=== PATIENT | female | born 1985 | race Caucasian/White ===

== ENCOUNTER 2017-02-20 13:48 | Emergency (ER) | payer SELFPAY ==
[~2017-02-20] VITALS: Ht 162.6 cm; Wt 72.5 kg
[~2017-02-20 13:48] MED LIST: Z.0.NO CURRENT MEDS
[2017-02-20 13:50] VITALS: BP 144/76; PULSE 86; RESP 15; TEMP 98.2; O2SAT 98
--- NOTE | 2017-02-20 13:57 | PD ---
Physical Exam Time Seen by Provider: 13:54 Narrative 31yo F c/o MERLOS x 6days. Hx of similar MERLOS's. +N w/o vomiting. Reports numbness to R side of neck. Denies focal deficits or weakness. Has been taking Maxalt w / no relief of MERLOS. Hx seizures and does not take medications. Patient seen in triage. VS reviewed. Awaiting bed placement. Data Data Last Documented VS Vital Signs Date Time Temp Pulse Resp B/P Pulse Ox O2 Delivery O2 Flow Rate FiO2 02/20/17 13:50 98.2 86 15 144/76 98 MDM Supervised Visit with ALDO: Mel Gomez Feb 20, 2017 13:57
[2017-02-20] MEDS ORDERED: SODIUM CHLOR 0.9% 1000 ML INJ 1,000 ML IV ONE (15:45)
[2017-02-20] MEDS ORDERED: METOCLOPRAMIDE HCL 10 MG/2 ML VIAL IVP ONE (15:45)
[2017-02-20] MEDS ORDERED: diphenhydrAMINE HCL 50 MG/ML VIAL IVP ONE (15:45)
[2017-02-20] MEDS ORDERED: KETOROLAC TROMETHAMINE 30 MG/ML (IVP) VIAL IVP ONE (15:45)
--- NOTE | 2017-02-20 15:52 | PD ---
HPI Chief Complaint: Headache Time Seen by Provider: 15:40 Travel History International Travel<30 days: No Contact w/Intl Traveler<30days: No Traveled to known affect area: No History of Present Illness HPI This is a 31-year-old female who has a history of migraine headaches who presents to the emergency department with 6 days of a headache on the right side of her head, constant, feeling like a numbness, associated with photophobia , nausea and pain in her right eye with some tearing. She says this feels just like headaches she's had in the past. She had an MRI a couple of years ago which was normal. She recently [place] here from [place] of town and has been taking Maxalt which was prescribed by her doctors at home but that's not been helping. PFSH Past Medical History Diminished Hearing: No GERD: Yes Headaches: Yes Reproductive: Yes (OV[employer] CYSTS) Migraines: Yes Tetanus Vaccination: > 5 Years Influenza Vaccination: No ?: Not LMP: 02/18/17 : 0 Para: 0 Miscarriage: 0 : 0 Past Surgical History Surgical History: No Previous Surgery Social History Alcohol Use: Yes (SOCIALLY ) Tobacco Use: No Substance Use: No Allergies-Medications (Allergen,Severity, Reaction): Coded Allergies: No Known Allergies (Verified , 02/20/17) Reported Meds & Prescriptions Reported Meds & Active Scripts Active Review of Systems Except as stated in HPI: all other systems reviewed are Neg Physical Exam Narrative GENERAL:Well appearing, no acute distress SKIN: Focused skin assessment warm and dry. HEAD: Atraumatic. Normocephalic. EYES: Pupils equal and round. No injection or drainage. ENT: Moist mucous membranes NECK: Trachea midline. CARDIOVASCULAR: Regular rate and rhythm. No murmur appreciated. RESPIRATORY: Clear to auscultation. Breath sounds equal bilaterally. GASTROINTESTINAL: Abdomen soft, non-tender, nondistended. MUSCULOSKELETAL: No obvious deformities. NEUROLOGICAL: Awake and alert. No obvious cranial nerve deficits. No dysarthria or aphasia. No upper or lower extremity drift. No upper extremity ataxia. Visual morales intact. PSYCHIATRIC: Appropriate mood and affect; insight and judgment normal. Data Data Last Documented VS Vital Signs Date Time Temp Pulse Resp B/P Pulse Ox O2 Delivery O2 Flow Rate FiO2 02/20/17 15:45 18 99 Room Air 02/20/17 13:50 98.2 86 144/76 Orders Iv Access Insert/Monitor (02/20/17 15:45) Ketorolac Inj (Toradol Inj) (02/20/17 15:45) Diphenhydramine Inj (Benadryl Inj) (02/20/17 15:45) Metoclopramide Inj (Reglan Inj) (02/20/17 15:45) Sodium Chlor 0.9% 1000 Ml Inj (Ns 1000 M (02/20/17 15:45) MDM Medical Decision Making Medical Screen Exam Complete: Yes Emergency Medical Condition: Yes Interpretation(s) Afebrile, no tachycardia, hypertensive Differential Diagnosis Migraine headache, subarachnoid hemorrhage, tension headache, cluster headache Narrative Course This is a 31-year-old female who has a history of migraine headaches who presents to the emergency department with a headache typical of her normal headaches that has not been going away for 6 days. She has a normal neurologic exam. I don't think any imaging is warranted as her headache was gradual in onset and is typical of her normal headaches. An IV was established and patient was given Reglan, Benadryl, Toradol and IV fluids. She feels much better. She'll be discharged on naproxen. Diagnosis Primary Impression: Migraine headache Qualified Code: G43.909 - Migraine without status migrainosus, not intractable , unspecified migraine type Patient Instructions: General Instructions Additional Instructions: If you develop severe worsening headache, persistent vomiting, numbness, weakness, difficulty walking or difficulty talking return to the emergency department immediately. Sometimes in the emergency department we did not identify the cause of headaches. If you continued to have headaches it is very important that you followup with your primary care physician as you may need further testing with an MRI. Med/Other Pt SpecificInfo: Prescription(s) given Scripts Naproxen 500 Mg Uil036 Mg PO BID PRN (PAIN SCALE 4 TO 10) #20 TAB Prov:Lori Desir MD 02/20/17 Disposition: 01 DISCHARGE HOME Condition: Stable Lori Desir MD Feb 20, 2017 15:52
[2017-02-20] MEDS ORDERED: NAPR500T PO (16:55)
== END 2017-02-20 17:30 | disposition home or self-care (01) ==
LOC: NEPD 13:48
DX: G43.909 Migraine, unspecified, not intractable, without status migrainosus (principal)
CPT/HCPCS: 96361; 96374; 96375; 99284; J1200; J1885; J2765; J7030

== ENCOUNTER 2018-02-04 17:56 | Emergency (ER) | payer SELFPAY ==
[~2018-02-04] VITALS: Ht 162.6 cm; Wt 72.8 kg
[~2018-02-04 17:56] MED LIST changes: +NAPR500T2 PO; -Z.0.NO CURRENT MEDS
[2018-02-04 18:02] VITALS: BP 136/85; PULSE 82; RESP 16; TEMP 98.2; O2SAT 98
[2018-02-04 18:18] LABS: BILIRUBIN, URINE NEG (NEG); BLOOD, URINE LARGE (NEG); GLUCOSE,URINE NEG (NEG); KETONE, URINE NEG (NEG); NITRITE,URINE NEG (NEG); URINE COLOR YELLOW (YELLW/STRAW); URINE LEUKOCYTE ESTERASE NEG (NEG)
[2018-02-04 18:22] LABS: MUCUS URINE MANY /lpf (OCC); SQUAMOUS EPITHELIAL CELL URINE 0-5 /hpf (0-5)
--- NOTE | 2018-02-04 18:38 | PD ---
HPI Chief Complaint: GI Complaint Time Seen by Provider: 18:07 Travel History International Travel<30 days: No Contact w/Intl Traveler<30days: No Traveled to known affect area: No History of Present Illness HPI The patient is a 32-year-old female who presents to the emergency department for nausea, vomiting, diarrhea, and abdominal pain. The patient's symptoms started on Friday with abdominal distention and nausea. This was followed by 2 episodes of vomiting. The patient did develop diarrhea which she describes as loose, watery, brown, without any visible blood. She notes approximately 10 episodes of diarrhea today. She denies any fever, chills, or sweats. She does work in a service engine repairer office, denies any sick contacts at home. The patient denies any previous abdominal surgeries. The patient states that she had thin white vaginal discharge last week, then started her menstrual cycle and there is been no further discharge. She denies any pelvic pain, dysuria, frequency, or urgency. Symptoms are moderate. The patient is currently on oral contraceptives, denies . She denies multiple sexual partners or history of chronic STDs. PFSH Past Medical History Diminished Hearing: No GERD: Yes Headaches: Yes Reproductive: Yes ([employer] CYSTS) Migraines: Yes Influenza Vaccination: No ?: Not LMP: THIS WEEK : 0 Para: 0 Miscarriage: 0 : 0 Social History Alcohol Use: Yes (SOCIALLY ) Tobacco Use: No Substance Use: No Allergies-Medications (Allergen,Severity, Reaction): Coded Allergies: No Known Allergies (Verified Adverse Reaction, Unknown, 02/04/18) Reported Meds & Prescriptions Reported Meds & Active Scripts Active Zofran Odt (Ondansetron Odt) 4 Mg Tab 4 Mg SL Q6HR PRN Bentyl (Dicyclomine HCl) 10 Mg Cap 10 Mg PO QID Naproxen 500 Mg Tab 500 Mg PO BID PRN Review of Systems Except as stated in HPI: all other systems reviewed are Neg General / Constitutional: No: Fever, Chills Cardiovascular: No: Chest Pain or Discomfort Respiratory: No: Shortness of Breath Gastrointestinal: Positive: Nausea, Vomiting, Diarrhea, Abdominal Pain Genitourinary: No: Dysuria Musculoskeletal: No: Myalgias Skin: No Rash Physical Exam Narrative GENERAL: Awake, alert, very pleasant 32-year-old female who appears her stated age and is in no acute respiratory distress. SKIN: Focused skin assessment warm/dry. HEAD: Atraumatic. Normocephalic. EYES: Pupils equal and round. No scleral icterus. No injection or drainage. ENT: No nasal bleeding or discharge. Dry mucous membranes. NECK: Trachea midline. No JVD. CARDIOVASCULAR: Regular rate and rhythm. No murmur appreciated. RESPIRATORY: No accessory muscle use. Clear to auscultation. Breath sounds equal bilaterally. GASTROINTESTINAL: Abdomen soft, non-tender, nondistended. No guarding or rigidity. No tympany noted. Back: No CVA tenderness. MUSCULOSKELETAL: No obvious deformities. No clubbing. No cyanosis. No edema. NEUROLOGICAL: Awake and alert. No obvious cranial nerve deficits. Motor grossly within normal limits. Normal speech. PSYCHIATRIC: Appropriate mood and affect; insight and judgment normal. Data Data Last Documented VS Vital Signs Date Time Temp Pulse Resp B/P (MAP) Pulse Ox O2 Delivery O2 Flow Rate FiO2 02/04/18 19:28 100 Room Air 02/04/18 19:05 74 16 02/04/18 18:02 98.2 Orders Orders Urinalysis - C+S If Indicated (02/04/18 18:07) Ed Urine Pregnancytest Poc (02/04/18 18:07) Complete Blood Count With Diff (02/04/18 18:40) Comprehensive Metabolic Panel (02/04/18 18:40) Lipase (02/04/18 18:40) Lactic Acid (02/04/18 18:40) Iv Access Insert/Monitor (02/04/18 18:40) Ecg Monitoring (02/04/18 18:40) Oximetry (02/04/18 18:40) Morphine Inj (Morphine Inj) (02/04/18 18:45) Sodium Chlor 0.9% 1000 Ml Inj (Ns 1000 M (02/04/18 18:40) Sodium Chloride 0.9% Flush (Ns Flush) (02/04/18 18:45) Dicyclomine (Bentyl) (02/04/18 18:45) Al-Mag Hy-Si 40-40-4 Mg/Ml Liq (Mag-Al P (02/04/18 18:45) Lidocaine 2% Viscous (Xylocaine 2% Visco (02/04/18 18:45) Ondansetron Odt (Zofran Odt) (02/04/18 18:45) Labs Laboratory Tests Test 02/04/18 18:05 02/04/18 19:00 Urine Color YELLOW Urine Turbidity CLEAR Urine pH 6.0 Urine Specific [place] GREATER/EQUAL 1.030 Urine Protein TRACE mg/dL Urine Glucose (UA) NEG mg/dL Urine Ketones NEG mg/dL Urine Occult Blood LARGE Urine Nitrite NEG Urine Bilirubin NEG Urine Urobilinogen 0.2 MG/DL Urine Leukocyte Esterase NEG Urine RBC 4-9 /hpf Urine WBC 3-5 /hpf Urine Squamous Epithelial Cells 0-5 /hpf Urine Mucus MANY /lpf White Blood Count 6.5 TH/MM3 Red Blood Count 4.49 MIL/MM3 Hemoglobin 11.9 GM/DL Hematocrit 36.0 % Mean Corpuscular Volume 80.2 FL Mean Corpuscular Hemoglobin 26.5 PG Mean Corpuscular Hemoglobin Concent 33.1 % Red Cell Distribution Width 12.4 % Platelet Count 307 TH/MM3 Mean Platelet Volume 7.9 FL Neutrophils (%) (Auto) 51.4 % Lymphocytes (%) (Auto) 35.1 % Monocytes (%) (Auto) 12.1 % Eosinophils (%) (Auto) 1.1 % Basophils (%) (Auto) 0.3 % Neutrophils # (Auto) 3.3 TH/MM3 Lymphocytes # (Auto) 2.3 TH/MM3 Monocytes # (Auto) 0.8 TH/MM3 Eosinophils # (Auto) 0.1 TH/MM3 Basophils # (Auto) 0.0 TH/MM3 CBC Comment DIFF FINAL Differential Comment Blood Urea Nitrogen 5 MG/DL Creatinine 0.54 MG/DL Random Glucose 80 MG/DL Total Protein 7.6 GM/DL Albumin 3.5 GM/DL Calcium Level 8.5 MG/DL Alkaline Phosphatase 76 U/L Aspartate Amino Transf (AST/SGOT) 13 U/L Alanine Aminotransferase (ALT/SGPT) 23 U/L Total Bilirubin 0.2 MG/DL Sodium Level 140 MEQ/L Potassium Level 3.5 MEQ/L Chloride Level 107 MEQ/L Carbon Dioxide Level 28.3 MEQ/L Anion Gap 5 MEQ/L Estimat Glomerular Filtration Rate 133 ML/MIN Lactic Acid Level 1.1 mmol/L Lipase 261 U/L MDM Medical Decision Making Medical Screen Exam Complete: Yes Emergency Medical Condition: Yes Medical Record Reviewed: Yes Interpretation(s) Laboratory Tests Test 02/04/18 18:05 02/04/18 19:00 Urine Color YELLOW Urine Turbidity CLEAR Urine pH 6.0 Urine Specific [place] GREATER/EQUAL 1.030 Urine Protein TRACE mg/dL Urine Glucose (UA) NEG mg/dL Urine Ketones NEG mg/dL Urine Occult Blood LARGE Urine Nitrite NEG Urine Bilirubin NEG Urine Urobilinogen 0.2 MG/DL Urine Leukocyte Esterase NEG Urine RBC 4-9 /hpf Urine WBC 3-5 /hpf Urine Squamous Epithelial Cells 0-5 /hpf Urine Mucus MANY /lpf White Blood Count 6.5 TH/MM3 Red Blood Count 4.49 MIL/MM3 Hemoglobin 11.9 GM/DL Hematocrit 36.0 % Mean Corpuscular Volume 80.2 FL Mean Corpuscular Hemoglobin 26.5 PG Mean Corpuscular Hemoglobin Concent 33.1 % Red Cell Distribution Width 12.4 % Platelet Count 307 TH/MM3 Mean Platelet Volume 7.9 FL Neutrophils (%) (Auto) 51.4 % Lymphocytes (%) (Auto) 35.1 % Monocytes (%) (Auto) 12.1 % Eosinophils (%) (Auto) 1.1 % Basophils (%) (Auto) 0.3 % Neutrophils # (Auto) 3.3 TH/MM3 Lymphocytes # (Auto) 2.3 TH/MM3 Monocytes # (Auto) 0.8 TH/MM3 Eosinophils # (Auto) 0.1 TH/MM3 Basophils # (Auto) 0.0 TH/MM3 CBC Comment DIFF FINAL Differential Comment Blood Urea Nitrogen 5 MG/DL Creatinine 0.54 MG/DL Random Glucose 80 MG/DL Total Protein 7.6 GM/DL Albumin 3.5 GM/DL Calcium Level 8.5 MG/DL Alkaline Phosphatase 76 U/L Aspartate Amino Transf (AST/SGOT) 13 U/L Alanine Aminotransferase (ALT/SGPT) 23 U/L Total Bilirubin 0.2 MG/DL Sodium Level 140 MEQ/L Potassium Level 3.5 MEQ/L Chloride Level 107 MEQ/L Carbon Dioxide Level 28.3 MEQ/L Anion Gap 5 MEQ/L Estimat Glomerular Filtration Rate 133 ML/MIN Lactic Acid Level 1.1 mmol/L Lipase 261 U/L Differential Diagnosis Differential diagnosis includes gastroenteritis, enteritis, colitis, viral syndrome, influenza, food poisoning, infectious diarrhea, dehydration, acute kidney injury, pancreatitis. Narrative Course IV was established, labs are drawn and sent, and the patient was placed on cardiac telemetry monitoring and continuous pulse oximetry monitoring. The patient was administered Zofran ODT, Bentyl, morphine, and IV fluids. Bedside UA test was obtained, was negative. UA was sent to lab. The patient' s white count is normal, however, there is increase in monocytes, may be viral etiology. The patient's LFTs and lipase are unremarkable, no evidence of secondary hepatitis or pancreatitis. UA reveals a few RBCs, otherwise negative. Lactic acid is normal. The patient was reassessed at 7:35 PM. There was no further vomiting, symptoms have slightly improved. Patient will be discharged home. Diagnosis Primary Impression: Diarrhea Qualified Codes: R19.7 - Diarrhea, unspecified Additional Impression: Gastroenteritis Patient Instructions: General Instructions Additional Instructions: Medications as directed. Please provide the patient a copy of her labs at discharge. Clear liquid diet and advance as tolerated. Work excuse for 2 days. Follow-up with your primary physician. Med/Other Pt SpecificInfo: Prescription(s) given Scripts Ondansetron Odt (Zofran Odt) 4 Mg Tab 4 MG SL Q6HR Y for Nausea/Vomiting, #7 TAB 0 Refills Prov: Carlos Mcgee MD 02/04/18 Dicyclomine (Bentyl) 10 Mg Cap 10 MG PO QID for Bowel Management, #12 CAP 0 Refills Prov: Carlos Mcgee MD 02/04/18 Disposition: 01 DISCHARGE HOME Condition: Stable Carlos Mcgee MD February 04, 2018 18:38
[2018-02-04] MEDS ORDERED: SODIUM CHLOR 0.9% 1000 ML INJ 1,000 ML IV SCH (18:40)
[2018-02-04] MEDS ORDERED: LIDOCAINE VISCOUS 2% SOLN 15 ML UDC PO ONE (18:45)
[2018-02-04] MEDS ORDERED: SODIUM CHLORIDE 0.9% FLUSH 10 ML FLUSH IV FLUSH PRN (18:45)
[2018-02-04] MEDS ORDERED: DICYCLOMINE HCL 10 MG CAP PO ONE (18:45)
[2018-02-04] MEDS ORDERED: ALUMINUM/MAGNESIUM/SIMETH 30 ML CUP PO ONE (18:45)
[2018-02-04] MEDS ORDERED: ONDANSETRON ODT 4 MG TAB PO ONE (18:45)
[2018-02-04] MEDS ORDERED: MORPHINE SULFATE 4 MG/ML INJ IV PUSH ONE (18:45)
[2018-02-04 19:05] VITALS: BP 125/84; PULSE 74; RESP 16; O2SAT 100
[2018-02-04 19:12] LABS: AUTOMATED NEUTROPHIL # 3.3 TH/MM3 (1.8-7.7); BASOPHIL % 0.3 % (0.0-2.0); EOSINOPHIL # 0.1 TH/MM3 (0-0.4); EOSINOPHIL % 1.1 % (0.0-4.0); HEMOGLOBIN 11.9 GM/DL (11.6-15.3); LYMPH % 35.1 % (9.0-44.0); LYMPHOCYTE # 2.3 TH/MM3 (1.0-4.8); MEAN CELL VOLUME 80.2 FL (80.0-100.0); MEAN CORPUSCULAR HEMOGLOBIN 26.5 PG (27.0-34.0); MEAN CORPUSCULAR HGB CONC 33.1 % (32.0-36.0); MEAN PLATELET VOLUME 7.9 FL (7.0-11.0); MONO % 12.1 % (0.0-8.0); MONOCYTE # 0.8 TH/MM3 (0-0.9); NEUT % 51.4 % (16.0-70.0); PLATELET COUNT 307 TH/MM3 (150-450); RED BLOOD COUNT 4.49 MIL/MM3 (4.00-5.30); RED CELL DISTRIBUTION WIDTH 12.4 % (11.6-17.2); WHITE BLOOD COUNT 6.5 TH/MM3 (4.0-11.0)
[2018-02-04 19:20] LABS: CHLORIDE 107 MEQ/L (98-107); SODIUM (NA) 140 MEQ/L (136-145)
[2018-02-04 19:23] LABS: CALCIUM 8.5 MG/DL (8.5-10.1)
[2018-02-04 19:24] LABS: ALBUMIN 3.5 GM/DL (3.4-5.0); BICARBONATE 28.3 MEQ/L (21.0-32.0); BLOOD UREA NITROGEN 5 MG/DL (7-18); GLUCOSE,RANDOM 80 MG/DL (74-106)
[2018-02-04 19:26] LABS: ALT (GPT) 23 U/L (10-53); AST (GOT) 13 U/L (15-37); CREATININE 0.54 MG/DL (0.50-1.00); GLOMERULAR FILTRATION RATE 133 ML/MIN (>89)
[2018-02-04 19:28] VITALS: O2SAT 100
[2018-02-04 19:28] LABS: TOTAL BILIRUBIN ADULT 0.2 MG/DL (0.2-1.0); TOTAL PROTEIN 7.6 GM/DL (6.4-8.2)
[2018-02-04 19:29] LABS: ALKALINE PHOSPHATASE 76 U/L (45-117)
[2018-02-04] MEDS ORDERED: ZOFR4TAB3 SL (19:39)
[2018-02-04] MEDS ORDERED: DICY10 PO (19:39)
[2018-02-04 20:19] VITALS: BP 136/87
== END 2018-02-04 21:06 | disposition home or self-care (01) ==
LOC: PHED 17:56
DX: K52.9 Noninfective gastroenteritis and colitis, unspecified (principal); K21.9 Gastro-esophageal reflux disease without esophagitis
CPT/HCPCS: 80053; 81001; 83605; 83690; 84703; 85025; 96361; 96374; 99284; J2270; J7030